=== PATIENT | male | born 1955 | race Caucasian/White ===

== ENCOUNTER 2017-04-16 12:12 | Inpatient (IN) | payer OTHER ==
[2017-04-16] VITALS (8 sets, daily range): BP systolic 94–116; BP diastolic 53–79
[~2017-04-16] VITALS: Ht 177.8 cm; Wt 45.3 kg
[2017-04-16 13:08] LABS: HEMATOCRIT 19.6 % (38.0-50.0); MCH 29.4 PG (29.0-34.0); MCHC 31.6 G/DL (30.0-36.0); MCV 92.9 FL (86-99); MEAN PLAT.VOLUME 8.9 uM^3 (9.0-12.4); PLATELET COUNT 386 K/uL (156-360); RBC DIS.WIDTH-CV 16.7 % (11.8-14.6); RBC DIS.WIDTH-SD 56.6 % (39-53); RED BLOOD COUNT 2.11 M/uL (4.00-5.50); WHITE BLOOD COUNT 8.7 K/uL (4.1-10.2)
[2017-04-16 13:14] LABS: CHLORIDE 98 mEq/L (99-109); POTASSIUM 3.7 mEq/L (3.7-5.4)
[2017-04-16 13:16] LABS: SODIUM 129 mEq/L (136-147)
[2017-04-16 13:17] LABS: GLUCOSE 98 mg/dL (70-99)
[2017-04-16 13:18] LABS: ANION GAP 7 MEQ/L (2-14)
[2017-04-16 13:19] LABS: TOTAL BILIRUBIN 0.2 mg/dL (0.0-1.0)
[2017-04-16 13:20] LABS: ALKALINE PHOSPHATASE 66 IU/L (3-129); GFR ESTIMATE (CALCULATED) > 59 mL/min/
[2017-04-16 13:21] LABS: UREA NITROGEN (BUN) 10 mg/dL (9-23)
[2017-04-16 13:55] LABS: INTER. NORMALIZED RATIO 1.3; PROTHROMBIN TIME 14.5 SEC (10.2-12.9)
[2017-04-16] MEDS ORDERED: SYMBICORT60 INHALA1 IH (15:52)
[2017-04-16] MEDS ORDERED: COLACE100 MG PO (15:53)
[2017-04-16] MEDS ORDERED: NICODERM CQ1 EAC2 TD (15:54)
[2017-04-16] MEDS ORDERED: MIRALAX17 GM PO (15:55)
[2017-04-16] MEDS ORDERED: ZANTAC150 MG PO (15:56)
[2017-04-16] MEDS ORDERED: SENNA8.6 MG PO (15:58)
[2017-04-16] MEDS ORDERED: SPIRIVA1 INHALATI IH (16:00)
[2017-04-16] MEDS ORDERED: LIDOCAINE700 MG TD (16:01)
[2017-04-16] MEDS ORDERED: TRAZODONE HCL50 MG PO (16:02)
[2017-04-16] MEDS ORDERED: DUONEB 2.5-0.5 M3 ML AEROSOL (16:04)
[2017-04-16] MEDS ORDERED: DULCOLAX10 MG PR (16:04)
[2017-04-16] MEDS ORDERED: MOTRIN800 MG PO (16:05)
[2017-04-16] MEDS ORDERED: ATIVAN1 MG PO (16:06)
[2017-04-16] MEDS ORDERED: ULTRAM50 MG PO (16:07)
[2017-04-16] MEDS ORDERED: MILK OF MAGN PO (16:08)
[2017-04-16] MEDS ORDERED: FLEET ENEMA-AD118 ML PR (16:09)
[2017-04-16 18:18] LABS: FERRITIN 118 NG/ML (22-322)
[2017-04-17 03:00] VITALS: BP 100/61
[2017-04-17 05:40] LABS: HEMATOCRIT 26.3 % (38.0-50.0); MCV 92.3 FL (86-99)
[2017-04-17 07:51] VITALS: BP 108/59
[2017-04-17 12:36] LABS: HEMATOCRIT 27.3 % (38.0-50.0); MCV 91.9 FL (86-99)
[2017-04-17 12:51] VITALS: BP 104/60
[2017-04-17 18:13] LABS: HEMATOCRIT 27.6 % (38.0-50.0); MCV 92.9 FL (86-99)
[2017-04-17 18:40] VITALS: BP 95/51
[2017-04-17 19:30] VITALS: BP 104/63
[2017-04-17 23:54] VITALS: BP 108/64
[2017-04-18 00:29] LABS: HEMATOCRIT 29.9 % (38.0-50.0); MCV 91.2 FL (86-99)
[2017-04-18 03:55] VITALS: BP 106/68
[2017-04-18 04:31] LABS: EOSINOPHIL (%) 0.5 % (0-5); EOSINOPHIL COUNT 0.1 K/uL (0-0.3); HEMATOCRIT 29.9 % (38.0-50.0); IMMATURE GRANULOCYTE (%) 0.4 % (0.0-0.7); INSTRUMENT ABS NEUTROPHIL CT 9.3 K/uL; LYMPHOCYTE COUNT 0.9 K/uL (1.0-2.8); MCH 29.5 PG (29.0-34.0); MCHC 32.8 G/DL (30.0-36.0); MCV 90.1 FL (86-99); MEAN PLAT.VOLUME 9.2 uM^3 (9.0-12.4); MONOCYTE (%) 5.8 % (3-12); MONOCYTE COUNT 0.6 K/uL (0-0.8); NEUTROPHIL (%) 85.3 % (45-76); NEUTROPHIL COUNT 9.3 K/uL (1.8-6.4); PLATELET COUNT 289 K/uL (156-360); RBC DIS.WIDTH-CV 14.7 % (11.8-14.6); RBC DIS.WIDTH-SD 47.8 % (39-53)
[2017-04-18 04:40] LABS: RED BLOOD COUNT 3.32 M/uL (4.00-5.50)
[2017-04-18 04:42] LABS: CHLORIDE 94 mEq/L (99-109); SODIUM 125 mEq/L (136-147)
[2017-04-18 04:44] LABS: GLUCOSE 85 mg/dL (70-99)
[2017-04-18 04:45] LABS: ANION GAP 9 MEQ/L (2-14)
[2017-04-18 04:48] LABS: GFR ESTIMATE (CALCULATED) > 59 mL/min/
[2017-04-18 04:49] LABS: UREA NITROGEN (BUN) 7 mg/dL (9-23)
[2017-04-18 08:07] VITALS: BP 100/54
[2017-04-18 11:56] VITALS: BP 100/62
[2017-04-18 13:17] LABS: HEMATOCRIT 31.5 % (38.0-50.0); MCV 92.1 FL (86-99)
[2017-04-18 13:39] LABS: ERTH.SED.RATE 58 MM/HR (0-20)
[2017-04-18 16:42] VITALS: BP 97/60
[2017-04-18 18:19] LABS: HEMATOCRIT 31.4 % (38.0-50.0); MCV 89.7 FL (86-99)
[2017-04-18 19:50] VITALS: BP 112/44
[2017-04-18 23:27] VITALS: BP 97/63
[2017-04-19] VITALS (19 sets, daily range): BP systolic 74–111; BP diastolic 44–67
[2017-04-19 00:38] LABS: HEMATOCRIT 30.1 % (38.0-50.0); MCV 89.9 FL (86-99)
[2017-04-19 05:46] LABS: HEMATOCRIT 28.8 % (38.0-50.0); MCV 90.9 FL (86-99); MEAN PLAT.VOLUME 9.9 uM^3 (9.0-12.4); PLATELET COUNT 210 K/uL (156-360); RBC DIS.WIDTH-CV 14.7 % (11.8-14.6); RBC DIS.WIDTH-SD 48.8 % (39-53); RED BLOOD COUNT 3.17 M/uL (4.00-5.50); WHITE BLOOD COUNT 14.2 K/uL (4.1-10.2)
[2017-04-19 06:19] LABS: ALKALINE PHOSPHATASE 53 IU/L (3-129); ANION GAP 10 MEQ/L (2-14); CHLORIDE 94 MEQ/L (99-109); GFR ESTIMATE (CALCULATED) > 59 mL/min/; GLUCOSE 87 mg/dL (70-99); POTASSIUM 3.9 MEQ/L (3.7-5.4); SAMPLE HEMOLYSIS CHECK 0; SAMPLE ICTERIC CHECK 0; SAMPLE LIPEMIA CHECK 0; SODIUM 129 MEQ/L (136-147); TOTAL BILIRUBIN 0.4 MG/DL (0.0-1.0); UREA NITROGEN (BUN) 7 mg/dL (9-23)
[2017-04-19 07:52] LABS: MAGNESIUM 1.3 mg/dl (1.3-2.7)
[2017-04-19 07:57] LABS: TROP-I INTERPRETATION NEGATIVE; TROPONIN-I 0.02 ng/mL (0.0-0.30)
[2017-04-19 09:13] LABS: METH RESISTANT S AUREUS PCR NEGATIVE (NEGATIVE)
[2017-04-19 09:39] LABS: PROBE CHECK PASS; SPECIMEN PROCESSING CONTROL PASS
[2017-04-19 12:30] LABS: HEMATOCRIT 29.5 % (38.0-50.0); MCV 93.1 FL (86-99)
[2017-04-19 20:19] LABS: HEMATOCRIT 25.5 % (38.0-50.0); MCV 93.4 FL (86-99)
[2017-04-20] VITALS (26 sets, daily range): BP systolic 78–107; BP diastolic 48–67
[2017-04-20 00:55] LABS: EOSINOPHIL (%) 2.1 % (0-5); EOSINOPHIL COUNT 0.3 K/uL (0-0.3); HEMATOCRIT 24.6 % (38.0-50.0); IMMATURE GRANULOCYTE (%) 0.9 % (0.0-0.7); IMMATURE GRANULOCYTE COUNT 0.1 K/uL; INSTRUMENT ABS NEUTROPHIL CT 9.8 K/uL; MCH 29.7 PG (29.0-34.0); MCHC 32.5 G/DL (30.0-36.0); MCV 91.4 FL (86-99); MEAN PLAT.VOLUME 10.4 uM^3 (9.0-12.4); MONOCYTE (%) 6.9 % (3-12); MONOCYTE COUNT 0.8 K/uL (0-0.8); NEUTROPHIL (%) 81.4 % (45-76); NEUTROPHIL COUNT 9.8 K/uL (1.8-6.4); PLATELET COUNT 158 K/uL (156-360); RBC DIS.WIDTH-CV 14.9 % (11.8-14.6); RBC DIS.WIDTH-SD 49.3 % (39-53); RED BLOOD COUNT 2.69 M/uL (4.00-5.50); WHITE BLOOD COUNT 12.1 K/uL (4.1-10.2)
[2017-04-20 06:37] LABS: EOSINOPHIL (%) 2.9 % (0-5); EOSINOPHIL COUNT 0.3 K/uL (0-0.3); HEMATOCRIT 25.8 % (38.0-50.0); IMMATURE GRANULOCYTE (%) 0.8 % (0.0-0.7); IMMATURE GRANULOCYTE COUNT 0.1 K/uL; INSTRUMENT ABS NEUTROPHIL CT 9.2 K/uL; LYMPHOCYTE COUNT 0.9 K/uL (1.0-2.8); MCH 29.8 PG (29.0-34.0); MCHC 31.8 G/DL (30.0-36.0); MCV 93.8 FL (86-99); MEAN PLAT.VOLUME 10.3 uM^3 (9.0-12.4); MONOCYTE (%) 6.7 % (3-12); MONOCYTE COUNT 0.8 K/uL (0-0.8); NEUTROPHIL (%) 81.2 % (45-76); NEUTROPHIL COUNT 9.2 K/uL (1.8-6.4); PLATELET COUNT 158 K/uL (156-360); RBC DIS.WIDTH-CV 15.1 % (11.8-14.6); RBC DIS.WIDTH-SD 51.6 % (39-53); RED BLOOD COUNT 2.75 M/uL (4.00-5.50); WHITE BLOOD COUNT 11.4 K/uL (4.1-10.2)
[2017-04-20 11:28] LABS: EOSINOPHIL (%) 2.6 % (0-5); EOSINOPHIL COUNT 0.3 K/uL (0-0.3); HEMATOCRIT 27.6 % (38.0-50.0); IMMATURE GRANULOCYTE COUNT 0.1 K/uL; INSTRUMENT ABS NEUTROPHIL CT 10.5 K/uL; LYMPHOCYTE COUNT 0.9 K/uL (1.0-2.8); MCH 28.9 PG (29.0-34.0); MCHC 30.4 G/DL (30.0-36.0); MCV 94.8 FL (86-99); MEAN PLAT.VOLUME 10.5 uM^3 (9.0-12.4); MONOCYTE (%) 6.2 % (3-12); MONOCYTE COUNT 0.8 K/uL (0-0.8); NEUTROPHIL (%) 83.3 % (45-76); NEUTROPHIL COUNT 10.5 K/uL (1.8-6.4); PLATELET COUNT 163 K/uL (156-360); RBC DIS.WIDTH-CV 15.1 % (11.8-14.6); RBC DIS.WIDTH-SD 51.4 % (39-53); RED BLOOD COUNT 2.91 M/uL (4.00-5.50); WHITE BLOOD COUNT 12.6 K/uL (4.1-10.2)
[2017-04-20 11:57] LABS: ANION GAP 4 MEQ/L (2-14); CHLORIDE 100 MEQ/L (99-109); GFR ESTIMATE (CALCULATED) > 59 mL/min/; GLUCOSE 94 mg/dL (70-99); POTASSIUM 3.4 MEQ/L (3.7-5.4); SAMPLE HEMOLYSIS CHECK 0; SAMPLE ICTERIC CHECK 0; SAMPLE LIPEMIA CHECK 0; SODIUM 133 MEQ/L (136-147); UREA NITROGEN (BUN) 4 mg/dL (9-23)
[2017-04-20 12:47] LABS: TYPE OF FLUID PLEURAL
[2017-04-20 13:53] LABS: BODY FLUID LDH 467 IU/L
[2017-04-20 14:12] LABS: BODY FLUID EOSINOPHILS 7 % (0-25); MONONUCLEAR WBC'S 13 %; POLYNUCLEAR WBC'S 80 % (0-25)
[2017-04-20 19:12] LABS: EOSINOPHIL (%) 3.5 % (0-5); EOSINOPHIL COUNT 0.4 K/uL (0-0.3); HEMATOCRIT 26.1 % (38.0-50.0); IMMATURE GRANULOCYTE (%) 0.8 % (0.0-0.7); IMMATURE GRANULOCYTE COUNT 0.1 K/uL; INSTRUMENT ABS NEUTROPHIL CT 9.6 K/uL; LYMPHOCYTE COUNT 1.1 K/uL (1.0-2.8); MCH 30.2 PG (29.0-34.0); MCHC 32.2 G/DL (30.0-36.0); MCV 93.9 FL (86-99); MEAN PLAT.VOLUME 11.1 uM^3 (9.0-12.4); MONOCYTE (%) 5.9 % (3-12); MONOCYTE COUNT 0.7 K/uL (0-0.8); NEUTROPHIL (%) 80.7 % (45-76); NEUTROPHIL COUNT 9.6 K/uL (1.8-6.4); PLATELET COUNT 154 K/uL (156-360); RBC DIS.WIDTH-CV 15.3 % (11.8-14.6); RBC DIS.WIDTH-SD 51.9 % (39-53); RED BLOOD COUNT 2.78 M/uL (4.00-5.50); WHITE BLOOD COUNT 11.9 K/uL (4.1-10.2)
[2017-04-21] VITALS (14 sets, daily range): BP systolic 80–133; BP diastolic 41–79
[2017-04-21 00:40] LABS: HEMATOCRIT 27.4 % (38.0-50.0); MCV 92.6 FL (86-99)
[2017-04-21 05:41] LABS: HEMATOCRIT 24.2 % (38.0-50.0); MCV 92.7 FL (86-99)
[2017-04-21 09:45] LABS: BODY FLUID RBC'S 153000 /MM^3 (0-100); BODY FLUID WBC'S 1302 /MM^3 (0-500)
[2017-04-21 12:48] LABS: HEMATOCRIT 26.1 % (38.0-50.0); MCV 93.5 FL (86-99)
[2017-04-21 19:21] LABS: HEMATOCRIT 23.9 % (38.0-50.0); MCV 91.6 FL (86-99)
[2017-04-22] VITALS (8 sets, daily range): BP systolic 99–125; BP diastolic 62–106
[2017-04-22 01:03] LABS: HEMATOCRIT 23.4 % (38.0-50.0); MCV 90.7 FL (86-99)
[2017-04-22 07:44] LABS: HEMATOCRIT 23.9 % (38.0-50.0); MCV 92.6 FL (86-99)
[2017-04-22 12:57] LABS: HEMATOCRIT 24.7 % (38.0-50.0); MCV 93.6 FL (86-99)
[2017-04-22 18:01] LABS: HEMATOCRIT 23.6 % (38.0-50.0); MCV 92.5 FL (86-99)
[2017-04-23] VITALS (10 sets, daily range): BP systolic 103–127; BP diastolic 57–88
[2017-04-23 01:09] LABS: HEMATOCRIT 22.3 % (38.0-50.0); MCV 90.7 FL (86-99)
[2017-04-23 05:03] LABS: EOSINOPHIL (%) 4.5 % (0-5); EOSINOPHIL COUNT 0.5 K/uL (0-0.3); HEMATOCRIT 23.1 % (38.0-50.0); IMMATURE GRANULOCYTE (%) 0.7 % (0.0-0.7); IMMATURE GRANULOCYTE COUNT 0.1 K/uL; INSTRUMENT ABS NEUTROPHIL CT 7.7 K/uL; LYMPHOCYTE COUNT 1.3 K/uL (1.0-2.8); MCH 29.4 PG (29.0-34.0); MCHC 32.5 G/DL (30.0-36.0); MCV 90.6 FL (86-99); MEAN PLAT.VOLUME 11.3 uM^3 (9.0-12.4); MONOCYTE (%) 8.9 % (3-12); MONOCYTE COUNT 0.9 K/uL (0-0.8); NEUTROPHIL (%) 73.6 % (45-76); NEUTROPHIL COUNT 7.7 K/uL (1.8-6.4); NRBC (%) 0.2 /100 WBC (0-0); PLATELET COUNT 186 K/uL (156-360); RBC DIS.WIDTH-CV 15.5 % (11.8-14.6); RBC DIS.WIDTH-SD 50.4 % (39-53); RED BLOOD COUNT 2.55 M/uL (4.00-5.50); WHITE BLOOD COUNT 10.4 K/uL (4.1-10.2)
[2017-04-23 05:31] LABS: CHLORIDE 101 mEq/L (99-109); POTASSIUM 3.5 mEq/L (3.7-5.4); SODIUM 138 mEq/L (136-147)
[2017-04-23 05:32] LABS: GLUCOSE 102 mg/dL (70-99)
[2017-04-23 05:34] LABS: ANION GAP 9 MEQ/L (2-14)
[2017-04-23 05:36] LABS: GFR ESTIMATE (CALCULATED) > 59 mL/min/
[2017-04-23 05:37] LABS: UREA NITROGEN (BUN) 3 mg/dL (9-23)
[2017-04-23 13:22] LABS: HEMATOCRIT 24.3 % (38.0-50.0); MCV 92.4 FL (86-99)
[2017-04-23 20:30] LABS: HEMATOCRIT 28.4 % (38.0-50.0); MCV 95.9 FL (86-99)
[2017-04-24] VITALS (24 sets, daily range): BP systolic 0–135; BP diastolic 0–81
[2017-04-24 06:59] LABS: HEMATOCRIT 23.1 % (38.0-50.0); MCHC 30.7 G/DL (30.0-36.0); MCV 94.3 FL (86-99); MEAN PLAT.VOLUME 10.6 uM^3 (9.0-12.4); PLATELET COUNT 234 K/uL (156-360); RBC DIS.WIDTH-CV 15.8 % (11.8-14.6); RBC DIS.WIDTH-SD 54.5 % (39-53); RED BLOOD COUNT 2.45 M/uL (4.00-5.50); WHITE BLOOD COUNT 9.5 K/uL (4.1-10.2)
[2017-04-24 12:26] LABS: ANION GAP 9 MEQ/L (2-14); CHLORIDE 100 MEQ/L (99-109); GFR ESTIMATE (CALCULATED) > 59 mL/min/; GLUCOSE 112 mg/dL (70-99); POTASSIUM 3.9 MEQ/L (3.7-5.4); SAMPLE HEMOLYSIS CHECK 0; SAMPLE ICTERIC CHECK 0; SAMPLE LIPEMIA CHECK 0; SODIUM 138 MEQ/L (136-147); UREA NITROGEN (BUN) 6 mg/dL (9-23)
[2017-04-24 12:27] LABS: FERRITIN 375 NG/ML (22-322)
[2017-04-25] VITALS (8 sets, daily range): BP systolic 110–142; BP diastolic 66–87
[2017-04-25 06:42] LABS: EOSINOPHIL COUNT 0.5 K/uL (0-0.3); HEMATOCRIT 30.4 % (38.0-50.0); IMMATURE GRANULOCYTE (%) 0.7 % (0.0-0.7); IMMATURE GRANULOCYTE COUNT 0.1 K/uL; LYMPHOCYTE COUNT 1.2 K/uL (1.0-2.8); MCH 28.6 PG (29.0-34.0); MCHC 31.9 G/DL (30.0-36.0); MEAN PLAT.VOLUME 10.3 uM^3 (9.0-12.4); MONOCYTE (%) 6.2 % (3-12); MONOCYTE COUNT 0.5 K/uL (0-0.8); NEUTROPHIL (%) 72.2 % (45-76); PLATELET COUNT 267 K/uL (156-360); RBC DIS.WIDTH-CV 15.9 % (11.8-14.6); RBC DIS.WIDTH-SD 51.7 % (39-53); WHITE BLOOD COUNT 8.3 K/uL (4.1-10.2)
[2017-04-25 06:45] LABS: ANION GAP 5 MEQ/L (2-14); CHLORIDE 100 MEQ/L (99-109); GFR ESTIMATE (CALCULATED) > 59 mL/min/; GLUCOSE 109 mg/dL (70-99); POTASSIUM 3.7 MEQ/L (3.7-5.4); SAMPLE HEMOLYSIS CHECK 0; SAMPLE ICTERIC CHECK 0; SAMPLE LIPEMIA CHECK 0; SODIUM 137 MEQ/L (136-147); UREA NITROGEN (BUN) 7 mg/dL (9-23)
[2017-04-25 07:49] LABS: MCV 89.7 FL (86-99); RED BLOOD COUNT 3.39 M/uL (4.00-5.50)
[2017-04-26] VITALS: BP 110/66
[2017-04-26 04:00] VITALS: BP 129/74
[2017-04-26 05:44] LABS: HEMATOCRIT 29.2 % (38.0-50.0); MCH 28.6 PG (29.0-34.0); MCHC 31.8 G/DL (30.0-36.0); MCV 89.8 FL (86-99); MEAN PLAT.VOLUME 10.2 uM^3 (9.0-12.4); PLATELET COUNT 286 K/uL (156-360); RBC DIS.WIDTH-CV 15.5 % (11.8-14.6); RBC DIS.WIDTH-SD 50.4 % (39-53); RED BLOOD COUNT 3.25 M/uL (4.00-5.50); WHITE BLOOD COUNT 6.4 K/uL (4.1-10.2)
[2017-04-26 06:01] LABS: ANION GAP 5 MEQ/L (2-14); CHLORIDE 103 MEQ/L (99-109); GFR ESTIMATE (CALCULATED) > 59 mL/min/; GLUCOSE 116 mg/dL (70-99); POTASSIUM 3.5 MEQ/L (3.7-5.4); SAMPLE HEMOLYSIS CHECK 0; SAMPLE ICTERIC CHECK 0; SAMPLE LIPEMIA CHECK 0; SODIUM 142 MEQ/L (136-147); UREA NITROGEN (BUN) 7 mg/dL (9-23)
[2017-04-26 06:26] LABS: MAGNESIUM 1.5 mg/dl (1.3-2.7)
[2017-04-26 10:00] VITALS: BP 137/86
[2017-04-26 12:00] VITALS: BP 130/82
[2017-04-26 16:00] VITALS: BP 135/81
[2017-04-26 20:00] VITALS: BP 127/76
[2017-04-27] VITALS: BP 84/66
[2017-04-27 04:00] VITALS: BP 112/66
[2017-04-27 05:21] LABS: HEMATOCRIT 31.4 % (38.0-50.0); MCH 28.5 PG (29.0-34.0); MCHC 31.5 G/DL (30.0-36.0); MCV 90.5 FL (86-99); PLATELET COUNT 332 K/uL (156-360); RBC DIS.WIDTH-CV 15.4 % (11.8-14.6); RBC DIS.WIDTH-SD 50.6 % (39-53); RED BLOOD COUNT 3.47 M/uL (4.00-5.50); WHITE BLOOD COUNT 8.7 K/uL (4.1-10.2)
[2017-04-27 05:53] LABS: ANION GAP 7 MEQ/L (2-14); CHLORIDE 100 MEQ/L (99-109); GFR ESTIMATE (CALCULATED) > 59 mL/min/; GLUCOSE 97 mg/dL (70-99); MAGNESIUM 1.7 mg/dl (1.3-2.7); SAMPLE HEMOLYSIS CHECK 0; SAMPLE ICTERIC CHECK 0; SAMPLE LIPEMIA CHECK 0; SODIUM 141 MEQ/L (136-147); UREA NITROGEN (BUN) 7 mg/dL (9-23)
[2017-04-27 08:00] VITALS: BP 125/75
[2017-04-27 12:00] VITALS: BP 125/75
[2017-04-27 16:00] VITALS: BP 126/81
[2017-04-27 20:00] VITALS: BP 118/69
[2017-04-28] VITALS: BP 123/73
[2017-04-28 02:00] VITALS: BP 90/54
[2017-04-28 04:00] VITALS: BP 118/69
[2017-04-28 08:00] VITALS: BP 131/80
[2017-04-28 12:00] VITALS: BP 113/72
[2017-04-28 16:00] VITALS: BP 106/68
[2017-04-29 08:00] VITALS: BP 120/63
[2017-04-29 11:17] VITALS: BP 119/73
[2017-04-29 12:00] VITALS: BP 107/70
[2017-04-29 16:29] VITALS: BP 105/66
[2017-04-30 09:01] VITALS: BP 120/72
[2017-04-30 12:00] VITALS: BP 99/66
[2017-04-30 15:05] LABS: RETIC HGB EQUIVALENT 27.9 (28-36); RETICULOCYTE COUNT 1.6 % (0.5-1.8)
[2017-04-30 15:12] LABS: GLOBULINS 2.6 G/DL (2.3-3.5)
[2017-04-30 16:00] VITALS: BP 88/51
[2017-04-30 19:02] LABS: ADD MIUA? YES; BILIRUBIN NEGATIVE; BLOOD NEGATIVE; COLOR YELLOW ((YELLOW)); GLUCOSE (STRIP) NEGATIVE; KETONES NEGATIVE; LEUKOCYTES NEGATIVE; NITRITE NEGATIVE; PROTEIN (STRIP) NEGATIVE; SPECIFIC GRAVITY 1.013 (1.000-1.030); UROBILINOGEN 0.2 MG/DL (0.2-1.0)
[2017-04-30 19:42] LABS: BACTERIA NONE SEEN /HPF; CASTS NONE SEEN /LPF; CRYSTALS PRESENT; EPITHELIAL CELLS RARE /HPF; MUCUS NONE SEEN /LPF; RED BLOOD CELLS RARE /HPF (0-5); WHITE BLOOD CELLS RARE /HPF (0-5)
[2017-04-30 19:43] LABS: AMORPHOUS PHOSPHATE CRYSTALS 3+
[2017-04-30 20:00] VITALS: BP 100/64
[2017-05-01] VITALS (7 sets, daily range): BP systolic 0–101; BP diastolic 0–59
[2017-05-01 06:14] LABS: EOSINOPHIL (%) 1.9 % (0-5); EOSINOPHIL COUNT 0.2 K/uL (0-0.3); IMMATURE GRANULOCYTE (%) 0.4 % (0.0-0.7); IMMATURE GRANULOCYTE COUNT 0.1 K/uL; INSTRUMENT ABS NEUTROPHIL CT 9.1 K/uL; LYMPHOCYTE COUNT 1.7 K/uL (1.0-2.8); MCH 28.5 PG (29.0-34.0); MCHC 31.6 G/DL (30.0-36.0); MCV 90.1 FL (86-99); MEAN PLAT.VOLUME 9.5 uM^3 (9.0-12.4); MONOCYTE (%) 7.4 % (3-12); MONOCYTE COUNT 0.9 K/uL (0-0.8); NEUTROPHIL (%) 75.8 % (45-76); NEUTROPHIL COUNT 9.1 K/uL (1.8-6.4); RBC DIS.WIDTH-CV 15.4 % (11.8-14.6); RBC DIS.WIDTH-SD 50.4 % (39-53); RED BLOOD COUNT 3.55 M/uL (4.00-5.50); WHITE BLOOD COUNT 12.1 K/uL (4.1-10.2)
[2017-05-01 06:23] LABS: PLATELET COUNT 553 K/uL (156-360)
[2017-05-01 06:40] LABS: ALKALINE PHOSPHATASE 88 IU/L (3-129); ANION GAP 6 MEQ/L (2-14); CHLORIDE 96 MEQ/L (99-109); GFR ESTIMATE (CALCULATED) > 59 mL/min/; GLUCOSE 108 mg/dL (70-99); SAMPLE HEMOLYSIS CHECK 0; SAMPLE ICTERIC CHECK 0; SAMPLE LIPEMIA CHECK 0; SODIUM 135 MEQ/L (136-147); TOTAL BILIRUBIN 0.3 MG/DL (0.0-1.0); UREA NITROGEN (BUN) 10 mg/dL (9-23)
[2017-05-01 06:53] LABS: POTASSIUM 4.9 MEQ/L (3.7-5.4)
[2017-05-02] VITALS (8 sets, daily range): BP systolic 0–107; BP diastolic 0–65
[2017-05-03] VITALS (7 sets, daily range): BP systolic 0–112; BP diastolic 0–70
[2017-05-04] VITALS (7 sets, daily range): BP systolic 82–103; BP diastolic 54–70
[2017-05-04 13:23] LABS: ALBUMIN 2.17 G/DL (3.6-4.9); ALBUMIN PERCENT 41.8 % (49.3-67.1); ALPHA-1 GLOBULIN 0.42 G/DL (0.15-0.40); ALPHA-2 GLOBULIN 1.02 G/DL (0.45-0.85); ALPHA-2 PERCENT 19.7 % (6.2-11.6); BETA PERCENT 14.8 % (8.9-15.8); GAMMA PERCENT 15.7 % (8.6-18.6); SERUM GEL NO. 97-6
[2017-05-05] VITALS: BP 94/61
[2017-05-05 04:00] VITALS: BP 103/62
[2017-05-05 07:28] LABS: IFE GEL NO. CAPI
[2017-05-05 08:00] VITALS: BP 96/55
[2017-05-05 12:00] VITALS: BP 95/60
[2017-05-05 16:00] VITALS: BP 99/60
[2017-05-05 20:00] VITALS: BP 103/58
[2017-05-06] VITALS (7 sets, daily range): BP systolic 94–120; BP diastolic 53–74
[2017-05-07 03:19] VITALS: BP 103/59
[2017-05-07 05:07] LABS: BASOPHIL COUNT 0.1 K/uL (0-0.1); EOSINOPHIL (%) 3.8 % (0-5); EOSINOPHIL COUNT 0.4 K/uL (0-0.3); HEMATOCRIT 30.3 % (38.0-50.0); IMMATURE GRANULOCYTE (%) 0.5 % (0.0-0.7); IMMATURE GRANULOCYTE COUNT 0.1 K/uL; INSTRUMENT ABS NEUTROPHIL CT 7.3 K/uL; LYMPHOCYTE COUNT 1.6 K/uL (1.0-2.8); MCH 28.5 PG (29.0-34.0); MCHC 31.7 G/DL (30.0-36.0); MCV 89.9 FL (86-99); MEAN PLAT.VOLUME 9.1 uM^3 (9.0-12.4); MONOCYTE (%) 8.6 % (3-12); MONOCYTE COUNT 0.9 K/uL (0-0.8); NEUTROPHIL (%) 70.5 % (45-76); NEUTROPHIL COUNT 7.3 K/uL (1.8-6.4); PLATELET COUNT 616 K/uL (156-360); RBC DIS.WIDTH-CV 14.9 % (11.8-14.6); RBC DIS.WIDTH-SD 49.2 % (39-53); RED BLOOD COUNT 3.37 M/uL (4.00-5.50); WHITE BLOOD COUNT 10.3 K/uL (4.1-10.2)
[2017-05-07 06:06] LABS: ANION GAP 7 MEQ/L (2-14); CHLORIDE 92 MEQ/L (99-109); GFR ESTIMATE (CALCULATED) > 59 mL/min/; GLUCOSE 109 mg/dL (70-99); POTASSIUM 4.9 MEQ/L (3.7-5.4); SAMPLE HEMOLYSIS CHECK 0; SAMPLE ICTERIC CHECK 0; SAMPLE LIPEMIA CHECK 0; SODIUM 132 MEQ/L (136-147); UREA NITROGEN (BUN) 15 mg/dL (9-23)
[2017-05-07 08:24] VITALS: BP 99/54
[2017-05-07 12:32] VITALS: BP 103/58
[2017-05-07 20:30] VITALS: BP 99/61
[2017-05-07 23:41] VITALS: BP 142/70
[2017-05-08 03:54] VITALS: BP 107/55
[2017-05-08 07:59] VITALS: BP 98/62
[2017-05-08 12:43] VITALS: BP 94/52
[2017-05-08 15:10] VITALS: BP 99/58
[2017-05-08 19:47] VITALS: BP 123/62
[2017-05-09] VITALS (7 sets, daily range): BP systolic 93–115; BP diastolic 50–63
[2017-05-10 04:05] VITALS: BP 100/59
[2017-05-10 07:08] VITALS: BP 91/52
[2017-05-10 07:12] LABS: BASOPHIL COUNT 0.1 K/uL (0-0.1); EOSINOPHIL (%) 5.2 % (0-5); EOSINOPHIL COUNT 0.6 K/uL (0-0.3); HEMATOCRIT 31.3 % (38.0-50.0); IMMATURE GRANULOCYTE (%) 0.4 % (0.0-0.7); INSTRUMENT ABS NEUTROPHIL CT 7.3 K/uL; LYMPHOCYTE COUNT 1.9 K/uL (1.0-2.8); MCV 90.5 FL (86-99); MEAN PLAT.VOLUME 9.1 uM^3 (9.0-12.4); MONOCYTE (%) 9.9 % (3-12); MONOCYTE COUNT 1.1 K/uL (0-0.8); NEUTROPHIL (%) 66.6 % (45-76); NEUTROPHIL COUNT 7.3 K/uL (1.8-6.4); PLATELET COUNT 681 K/uL (156-360); RBC DIS.WIDTH-CV 15.3 % (11.8-14.6); RBC DIS.WIDTH-SD 49.9 % (39-53); RED BLOOD COUNT 3.46 M/uL (4.00-5.50)
[2017-05-10 07:44] LABS: ANION GAP 6 MEQ/L (2-14); CHLORIDE 95 MEQ/L (99-109); GFR ESTIMATE (CALCULATED) > 59 mL/min/; GLUCOSE 107 mg/dL (70-99); POTASSIUM 4.5 MEQ/L (3.7-5.4); SAMPLE HEMOLYSIS CHECK 0; SAMPLE ICTERIC CHECK 0; SAMPLE LIPEMIA CHECK 0; SODIUM 134 MEQ/L (136-147); UREA NITROGEN (BUN) 16 mg/dL (9-23)
[2017-05-10 11:07] VITALS: BP 121/52
[2017-05-10 16:10] VITALS: BP 104/55
[2017-05-10 21:30] VITALS: BP 101/64
[2017-05-11 02:07] VITALS: BP 102/66
[2017-05-11 04:21] VITALS: BP 134/96
[2017-05-11 07:05] VITALS: BP 93/57
[2017-05-11 16:00] VITALS: BP 103/59
[2017-05-11 20:00] VITALS: BP 114/54
[2017-05-11 23:56] VITALS: BP 110/74
[2017-05-12 02:12] VITALS: BP 104/71
[2017-05-12 07:30] VITALS: BP 100/61
[2017-05-12 12:00] VITALS: BP 106/69
[2017-05-12 16:00] VITALS: BP 100/89
[2017-05-12 21:00] VITALS: BP 109/70
[2017-05-13] VITALS: BP 105/78
[2017-05-13 04:00] VITALS: BP 110/74
[2017-05-13 07:15] VITALS: BP 98/60
[2017-05-13 14:50] VITALS: BP 105/60
[2017-05-13 19:44] VITALS: BP 114/65
[2017-05-13 23:37] VITALS: BP 99/57
[2017-05-14 04:28] VITALS: BP 96/55
[2017-05-14 07:15] VITALS: BP 98/60
[2017-05-14 20:00] VITALS: BP 113/68
[2017-05-14 23:52] VITALS: BP 97/65
[2017-05-15 04:00] VITALS: BP 105/65
[2017-05-15 08:04] VITALS: BP 101/63
[2017-05-15 12:02] VITALS: BP 97/61
[2017-05-15] MEDS ORDERED: DUONEB 2.5-0.5 M3 ML AEROSOL (15:11)
[2017-05-15] MEDS ORDERED: LOPRESSOR25 MG PO (15:12)
[2017-05-15] MEDS ORDERED: VITAMIN D2000 UNI1 PO (15:14)
[2017-05-15] MEDS ORDERED: THERAGRAN1 TABLET PO (15:14)
[2017-05-15] MEDS ORDERED: HYDROCODON-ACE1 EAC7 PO (15:16)
[2017-05-15 15:32] VITALS: BP 105/65
== END 2017-05-15 18:08 | DRG 981 ==
LOC: EME 12:12 → 4WEST 15:25 → 4EAST 15:25 → EDOF 15:25 → ENRESERV 15:35 → 4EAST 17:01 → ENRESERV 04-19 07:22 → 4WEST 04-19 07:30 → ENRESERV 04-29 17:05 → 4WEST 04-29 17:05 → CANRESERV 04-29 17:05 → 4WEST 04-30 12:47 → ENRESERV 05-06 11:40 → 4EAST 05-06 15:27
PROVIDERS: Emergency Medicine; Internal Medicine; Internal Medicine Critical Care Medicine; Internal Medicine Hematology & Oncology; Internal Medicine Pulmonary Disease; Specialist; Surgery; Thoracic Surgery (Cardiothoracic Vascular Surgery)
DX: D50.0 Iron deficiency anemia secondary to blood loss (chronic) (principal); K26.4 Chronic or unspecified duodenal ulcer with hemorrhage; S27.1XXA Traumatic hemothorax, initial encounter; V89.2XXA Person injured in unspecified motor-vehicle accident, traffic, initial encounter; J98.11 Atelectasis; J90 Pleural effusion, not elsewhere classified; J44.0 Chronic obstructive pulmonary disease with (acute) lower respiratory infection; J18.9 Pneumonia, unspecified organism; T17.590A Other foreign object in bronchus causing asphyxiation, initial encounter; J96.91 Respiratory failure, unspecified with hypoxia; J95.812 Postprocedural air leak; I47.1 Supraventricular tachycardia; I48.91 Unspecified atrial fibrillation; I95.9 Hypotension, unspecified; E43 Unspecified severe protein-calorie malnutrition; Z68.1 Body mass index [BMI] 19.9 or less, adult; K44.9 Diaphragmatic hernia without obstruction or gangrene; E87.1 Hypo-osmolality and hyponatremia; E87.6 Hypokalemia; I27.2 Other secondary pulmonary hypertension; I34.1 Nonrheumatic mitral (valve) prolapse; K57.90 Diverticulosis of intestine, part unspecified, without perforation or abscess without bleeding; K64.9 Unspecified hemorrhoids; M95.4 Acquired deformity of chest and rib; J34.2 Deviated nasal septum; G43.909 Migraine, unspecified, not intractable, without status migrainosus; F32.9 Major depressive disorder, single episode, unspecified; E78.5 Hyperlipidemia, unspecified; F41.9 Anxiety disorder, unspecified; F60.9 Personality disorder, unspecified; F12.90 Cannabis use, unspecified, uncomplicated; F17.200 Nicotine dependence, unspecified, uncomplicated; Z80.0 Family history of malignant neoplasm of digestive organs
CPT/HCPCS: 71010; 71020; 71260; 76942; 80048; 80053; 80202; 81003; 82306; 82607; 82728; 82746; 82945; 83605; 83615 91; 83735; 83880; 83883 90; 84100; 84157; 84165; 84484; 85014; 85018; 85025; 85025 91; 85027; 85045; 85610; 85651; 85730; 86140; 86334; 86900; 86901; 86920; 87040; 87070; 87075; 87086; 87106; 87116; 87205; 87206; 87493; 87641; 88108; 88305; 88342 TC; 89051; 93005; 93306; 94002; 94010; 94640; 94640 76; 94667; 94668; 94760; 94799; 97530 GO; 97530 GP; 99202; 99281; 99285; C1751; C9113; J0153; J0330; J0690; J0696; J1160; J1644; J1885; J2543; J3010; J3370; J3475; J3480; J7030; J7050; J7120; P9016; P9045; S0030